=== PATIENT | female | born 1950 | race Caucasian/White ===

== ENCOUNTER 2018-03-09 10:53 | Day surgery (SDC) | payer OTHER ==
[2018-03-09] MEDS ORDERED: TRYPAN BLUE 0.5 ML SYR OPTH ONE (11:10)
[2018-03-09] MEDS: PHENYLEPHRINE 10% OPTH 5ML ONE ×3 (12:25→12:45)
[2018-03-09] MEDS ORDERED: BUPIVACAINE 0.25% PF 10 ML VIAL ONE (12:25)
[2018-03-09] MEDS: CYCLOPENTOLATE 1% OPTH 2 ML ONE ×3 (12:25→12:45)
[2018-03-09] MEDS ORDERED: NA CHLORIDE 0.9% 500 ML ONE (12:25)
[2018-03-09] MEDS ORDERED: LIDOCAINE 2% MPF 5 ML VIAL ONE ×2 (12:25→13:18)
[2018-03-09] MEDS: BALANCED SALT IRRIG PLAIN 500 ML BTL IRR ONE ×2 (13:05→14:03)
[2018-03-09] MEDS: EPINEPHRINE/PF 1 MG/ML AMP ONE ×2 (13:07→14:03)
[2018-03-09] MEDS: MOXIFLOXACIN HCL 10 DROPS/ML **OR USE OPTH ONE ×2 (13:08→14:03)
[2018-03-09] MEDS: DUOVISC 1 KIT OPTH ONE ×2 (13:08→14:03)
[2018-03-09] MEDS: TETRACAINE HCL 0.5% 2ML OPTH ONE ×4 (13:10→13:46)
[2018-03-09] MEDS ORDERED: PROPOFOL 200 MG/20 ML VIAL IV ONE (13:18)
--- NOTE | 2018-03-09 14:30 | P.BOP ---
Preoperative diagnosis: Nuclear sclerotic, anterior and posterior subcapsular cataract OD Postoperative diagnosis: Same Primary procedure: Phacoemulsification with IOL OD Estimated blood loss: None Anesthesia: Local (Subtenon's infusion with anesthesia for cataract surgery) Complications: None Implants: ZCB00 +22.5 Transferred to: Other (Day surgery) Condition: Good
--- NOTE | 2018-03-10 01:26 | OP ---
Date of Procedure: 03/09/2018 Surgeon: Maty Motta MD Anesthesiologist: No Grace CRNA and Victor Manuel Tillman MD. Preoperative Diagnosis: Nuclear sclerotic and anterior and posterior subcapsular cataract, right eye . Operation Performed: Phacoemulsification with intraocular lens implant, right eye. Anesthesia: Per cataract surgery. Complications: None. Description Of Procedure: In day surgery, the patient was prepped with Betadine and draped. A conju nctival incision was made in the inferior nasal quadrant with Addy scissors. A sub-Tenon block c onsisting of a 1:1 mixture of 2% Xylocaine and 0.25% bupivacaine was placed through the conjunctival incision with a blunt cannula. A Honan balloon was placed over the eye and the patient was transferr ed to the operating room. In the operating room the patient was prepped and draped in the usual sterile fashion for ophthalmic surgery. A lid speculum was placed in the right eye. Two paracentesis sites were made superiorly an d inferiorly in the limbal cornea. Viscoat was placed in the anterior chamber and a crescent blade w as used to make a corneal groove and tunnel, and a keratome was used to enter the anterior chamber. Provisc was placed in the anterior chamber and a 360 degree capsulotomy was performed with a cystitom e. The lens was hydrodissected with BSS and rotated freely. The lens was removed with a stop and ch op technique. 13.70 phaco CDE was used to remove the lens. Residual cortex was removed with the irr igation and aspiration. Provisc was placed in the capsular bag. A ZCB00 +22.5 lens was placed in th e capsular bag without complications. Irrigation and aspiration were used to remove residual viscoel astic. The paracentesis sites were hydrated with BSS. The wound and paracentesis sites were inspect ed and found to be watertight. Vigamox 0.07 cc was placed intracamerally at the end of the procedure . The eye was irrigated with balanced salt solution. The eye was patched with a soft cotton patch a nd Carmichael metal shield. The patient was returned to day surgery in good condition. Comments: Discharge Instructions: Ms. Quevedo was discharged to home in good condition and is to follow up camilla Motta in the morning. JHL/MODL Voice ID: [id number] Report ID: [id number]
== END 2018-03-09 15:11 | disposition home or self-care (01) ==
LOC: OR 10:53
PROVIDERS: ATTEND Ophthalmology Retina Specialist
PROC: 08RJ3JZ Replacement of Right Lens with Synthetic Substitute, Percutaneous Approach (ICD-10-PCS; principal; 2018-03-09 11:45)
DX: H25.11 Age-related nuclear cataract, right eye (principal); H25.031 Anterior subcapsular polar age-related cataract, right eye; H25.041 Posterior subcapsular polar age-related cataract, right eye; Z83.511 Family history of glaucoma; Z82.49 Family history of ischemic heart disease and other diseases of the circulatory system
CPT/HCPCS: J0171; J2704

== ENCOUNTER 2022-12-25 09:46 | Observation (INO) | payer BC ==
[2022-12-25] MEDS ORDERED: LIDOCAINE 1% MPF 5 ML VIAL ONE (10:12)
[2022-12-25] MEDS ORDERED: dexAMETHasone 10 MG/ML VIAL ONE (10:12)
[2022-12-25] MEDS ORDERED: FENTANYL CITR 100 MCG/2 ML ONE (10:12)
[2022-12-25] MEDS ORDERED: MIDAZOLAM HCL 2 MG/2 ML INJ ONE (10:12)
[2022-12-25] MEDS ORDERED: EPINEPHRINE/PF 1 MG/ML AMP ONE (10:12)
[2022-12-25] MEDS ORDERED: BUPIVACAINE 0.25% PF 30 ML VIAL ONE (10:13)
[2022-12-25] MEDS ORDERED: Ringers Lactate 1,000 ML IV ONE ×2 (10:15→14:01)
[2022-12-25] MEDS ORDERED: CEFAZOLIN SODIUM 2 GM/VIAL ONE (10:15)
[2022-12-25] MEDS ORDERED: CELECOXIB 100 MG CAPSULE ONE (10:29)
[2022-12-25] MEDS ORDERED: GABAPENTIN 100 MG CAP ONE (10:29)
[2022-12-25] MEDS ORDERED: Oxycodone HCl/Acetaminophen 5/325 MG TAB ONE (10:29)
[2022-12-25] MEDS ORDERED: ACETAMINOPHEN 500 MG TAB ONE (10:30)
[2022-12-25] MEDS ORDERED: TRANEXAMIC ACID 1,000 MG/10 ML VIAL IV ONE (11:31)
[2022-12-25] MEDS ORDERED: propofoL 200 MG/20 ML VIAL IV ONE (11:50)
[2022-12-25] MEDS ORDERED: KETAMINE HCL IN 0.9 % NACL 50 MG/5 ML SYRINGE IV ONE (11:50)
[2022-12-25] MEDS ORDERED: LIDOCAINE 2% MPF 5 ML VIAL ONE (11:50)
[2022-12-25] MEDS ORDERED: ONDANSETRON 4 MG/2 ML VIAL ONE (11:53)
[2022-12-25] MEDS ORDERED: MAGNESIUM SULFATE 1 gm IVPB 1 GM/100 ML BAG IV ONE (11:54)
[2022-12-25] MEDS ORDERED: DEXMEDETOMIDINE HCL 200 MCG/2 ML VIAL ONE (12:12)
[2022-12-25] MEDS ORDERED: EPHEDRINE SULF 50 MG/ML VIAL ONE (12:26)
[2022-12-25] MEDS ORDERED: DIPHENHYDRAMINE 25 MG TAB/CAP PO PRN (14:45)
--- NOTE | 2022-12-25 14:45 | P.BOP ---
Preoperative diagnosis: left knee osteoarthritis Postoperative diagnosis: same Primary procedure: Left total knee arthroplasty Electronic Systems Technician: NONE,NONE Estimated blood loss: 50 cc Specimen: Left knee bone remnants Findings: See dictation Anesthesia: General Complications: None Implants: Biomet Aron Persona 7 CR femur, F tibia with stem, 32 patella, 10 CR poly Fluids & blood products: per anesthesia record; TT: 87 mins @ 300 mmHg Transferred to: Recovery Room Condition: Good
[2022-12-25] MEDS ORDERED: ONDANSETRON 4 MG/2 ML VIAL IV PRN (14:48)
[2022-12-25] MEDS ORDERED: ACETAMINOPHEN 325 MG TABLET PO PRN (14:48)
[2022-12-25] MEDS ORDERED: DOCUSATE NA 100 MG CAP PO PRN (14:48)
[2022-12-25] MEDS ORDERED: TRAMADOL HCL 50 MG TAB PO PRN (14:52)
--- NOTE | 2022-12-25 15:26 | RAD REPORT ---
EXAM DESCRIPTION: RAD - Knee Left 2 View - 12/25/2022 3:18 pm CLINICAL HISTORY: Post Op COMPARISON: No comparisons FINDINGS: Left total knee arthroplasty has been performed. No unexpected immediate postoperative fin ding. Small of air is present in the joint. Skin franchesca are present. IMPRESSION: Postoperative left knee.
[2022-12-25 15:57] LABS: Hematocrit 39.3 % (36.0-45.0)
--- OUTSIDE RECORDS SUMMARY | 2022-12-25 16:16 | XMS REPORT | Continuity of Care Document ---
:1950 Author Organization [facility] t Address [address] [facility] [address] [place] [address] Care Team Providers Name Role Phone Steve Cox Attending Clinician Unavailable Problems This patient has no known problems. Allergies, Adverse Reactions, Alerts This patient has no known allergies or adverse reactions. Medications This patient has no known medications. Procedures This patient has no known procedures. Encounters Start End Encounter Admission Attending Care Care Encounter Source Date/Time Date/Time Type Type Clinicians Facility Department ID 2022-10-29 Outpatient Kenny [facility] [id number] Common 16:04:00 Steve [id number] [facility] 2022-10-14 Outpatient Kenny [facility] [id number] Common 10:49:00 Steve [id number] [facility] 2021-12-18 Outpatient Kenny [facility] [id number] Common 14:31:02 Steve [id number] [facility] Results This patient has no known results.
--- NOTE | 2022-12-25 16:43 | P.OP ---
Preoperative diagnosis: left knee osteoarthritis Postoperative diagnosis: same Primary procedure: Left total knee arthroplasty Anesthesia: general Estimated blood loss: 50 cc Specimen: left knee bone remnants Findings: See dictation Operative Technique: Indication For Procedure: Genna is an 72 year-old female presenting to my clinic with signs, symptoms and x-ray findings consistent with a severe left knee osteoarthritis. I discussed with the patient at length risks and benefits associated with operative and nonoperative treatment. She had failed conservative treatment measures and had significant difficulties with ADLs secondary to her pain. We discussed operative treatment and elected to proceed with left total knee arthroplasty. She expressed understanding and elected to proceed with operative treatment. Description Of Procedure: After informed consent was obtained, the patient was identified in the preoperative holding area. The left lower extremity was marked. The patient was then taken to the PACU where he underwent a left lower extremity adductor canal block performed by Anesthesia. She was then taken to the operating room, transferred to the operating table in supine fashion, and placed under general anesthesia. Her left lower extremity was then prepped and draped in usual sterile fashion. A time-out was initiated. The correct patient and procedure were confirmed and identified. The patient did receive her preoperative prophylactic antibiotics. The left lower extremity was then exsanguinated and tourniquet was inflated to 300 mmHg. Approximately 15 cm longitudinal incision was made centered over the anterior aspect of the left knee. Dissection was then taken to the extensor mechanism and a medial parapatellar arthrotomy was performed. The patella was everted and dislocated laterally and the knee was flexed in the fat pad. Osteophytes were debrided off the patella and a lateral release was performed. Medial and lateral meniscus and ACL were all excised exposing the distal femur. Excess hypertrophic synovium was also excised within the suprapatellar pouch. The patient had a CT scan of the left knee preoperatively for surgical planning and creation of cutting blocks. The cutting block was then placed over the distal femur and pins were then placed. The distal femoral cutting block was then placed over th e pins. Knee joint was then used to ensure proper depth cut and the distal femur was then cut. The chamfer cutting guide was then placed over the distal end of the femur. Anterior, posterior cuts as well as anterior and posterior chamfer cuts were then made again confirming proper depth of the cut using an Deepak wing. Excess bone remnants were then sent to pathology for further evaluation. Next, attention was taken to the proximal tibia. A tibial jig and tibial cutting block was then placed on proximal aspect of the left tibia and locked into position. Pins were then placed and alignment guide was then used to confirm proper alignment of the cut and then coronal and sagittal planes. The bone quality was somewhat diminished and a stem was prepared to aid with stabilization of the tibial implant. Once this was confirmed, the cutting jig was placed over the pins and the proximal tibia was cut. Sizing trays were then selected and size 10 mm spacer was used and there was good overall balance in flexion and extension. Next, the trial implants were then placed using the size 7 standard CR femur and a size F tibia with a 10 mm poly. There was overall good range of motion and good stability Trial implants were then removed. The wound was then irrigated thoroughly with normal saline and the knee was then injected with 20 cc of 0.5% Marcaine both in the posterior capsule and medial and lateral gutters as well as quadriceps tendon and periosteum. The tibia was then punched. The femur was drilled. The cement was then prepared on the back table. Cement was then placed first on the tibial surface followed by size F tibia with a stem. Excess cement was removed with Winder elevators. Size 7 standard CR femur was then placed on the distal femur after cement was placed on the distal femur. Excess cement was then removed and a size 10 mm trial poly was then placed. The knee was held in extension as the cement hardened. Undersurface of the patella was prepared debriding osteophytes using rongeurs as well as osteophytes had been debrided off the proximal tibia with rongeurs and osteotomes. Cement was placed on the undersurface of the patella after it was cut and a size 32 patella was placed. Once the cement was hardened, the knee was ranged, there was good overall stability both in flexion, extension and as well as stability with varus and valgus stresses. Trial poly was then removed and a size 10 mm CR poly was then placed and locked into position. The knee was then ranged again. There was good overall range of motion both for flexion and extension with good stability. The wound was then irrigated again thoroughly with normal saline using pulse lavage. Tourniquet was let down. Hemostasis was achieved using Bovie electrocautery. Extensor mechanism was then approximated using a #1 Vicryl bothin interrupted and running fashion. The fascia was then approximated using 0 Vicryl. Subcutaneous tissue was approximated with a 2-0 Vicryl. Skin was approximated using franchesca. Sterile dressings were applied. The patient was awakened and transferred back in stable condition Complications: None Implants: Biomet Aron Persona 7 CR femur, F tibia with stem, 32 patella, 10 CR poly Fluids & blood products: per anesthesia record; TT: 87 mins @ 300 mmHg Transferred to: Recovery Room Condition: Good
[2022-12-25] MEDS: CEFAZOLIN SODIUM 2 GM in NA CHLORIDE 0.9% 100 ML IVPB SCH (17:51)
[2022-12-25 18:30] VITALS: O2SAT 99; BMI 32.3
[2022-12-25] MEDS: HYDROCODONE/APAP 7.5/325 MG TAB PO PRN (18:53)
[2022-12-25] MEDS ORDERED: PNEUMOCOCCAL VACCINE 0.5 ML IMVAC ONE (20:00)
[2022-12-25] MEDS ORDERED: INFLUENZA VACCINE (for 6+ mo) 0.5 ML DOSE IMVAC ONE (20:00)
[2022-12-25] MEDS ORDERED: HOME MED 1 EA UNK (Rosuvastatin Calcium [Rosuvastatin Calcium] 40 MG Tablet) PO SCH (21:00)
[2022-12-25] MEDS ORDERED: ROSUVASTATIN 10 MG TAB PO SCH (21:00)
[2022-12-26] MEDS: CEFAZOLIN SODIUM 2 GM in NA CHLORIDE 0.9% 100 ML IVPB SCH ×2 (01:04→09:43)
[2022-12-26] MEDS: HYDROCODONE/APAP 7.5/325 MG TAB PO PRN ×2 (01:44→10:23)
[2022-12-26] MEDS: ENOXAPARIN 30 MG/0.3 ML SQ SCH ×3 (05:38→09:45)
[2022-12-26 07:01] LABS: Hematocrit 36.6 % (36.0-45.0)
[2022-12-26] MEDS ORDERED: HOME MED 1 EA UNK (Cholecalciferol (Vitamin D3) [Vitamin D3] 1,000 UNIT Capsule) PO SCH (09:00)
[2022-12-26] MEDS ORDERED: CELECOXIB 100 MG CAPSULE PO SCH (09:00)
[2022-12-26] MEDS ORDERED: VITAMIN D 1000 UNIT TAB PO SCH (09:00)
[2022-12-26 12:18] VITALS: BP 142/61; TEMP 96.9
--- NOTE | 2022-12-26 12:19 | P.DS ---
Admission Date: 12/25/22 Discharge Date: 12/26/22 Disposition: ROUTINE DISCHARGE Discharge Condition: GOOD Reason for Admission: s/p left TKA Consultations: none Procedures: Left total knee arthroplasty on December 25, 2022 Brief History of Present Illness: Genna is a 72-year-old female who underwent left total knee arthroplasty on December 25, 2022 without complication. She was admitted to floor in stable condition. Hospital Course: Genna is a 72-year-old female who underwent left total knee arthroplasty on December 25, 2022 without complication. She was admitted to floor in stable condition. Physical therapy was consulted to aid with mobilization. She was discharged on December 26, 2022 in stable condition. Her vital signs were stable while in the hospital. She mobilize safely with physical therapy. She will follow-up in 2 weeks for wound check and staple removal. Vital Signs/Physical Exam: Temp Pulse Resp BP Pulse Ox 96.3 F L 87 18 150/62 H 98 12/26/22 08:00 12/26/22 08:00 12/26/22 10:23 12/26/22 08:00 12/26/22 10:23 Laboratory Data at Discharge: Hgb 12.0 g/dL (12.0-15.0) D 12/26/22 06:30 Hct 36.6 % (36.0-45.0) 12/26/22 06:30 Home Medications: Acetaminophen 500 mg PO BID 12/19/22 Cholecalciferol (Vitamin D3) [Vitamin D3] 1,000 unit PO DAILY 12/19/22 Diphenhydramine [Benadryl*] 25 mg PO BEDTIME PRN PRN 12/19/22 Mitochondrial Synergy Suppleme 1 tab PO DAILY 12/19/22 Multivitamin 1 each PO DAILY 12/19/22 Multivitamin with Minerals [Hair, Skin and Nails] 1 each PO DAILY 12/19/22 Rosuvastatin Calcium 40 mg PO BEDTIME 12/19/22 Hydrocodone 7.5/APAP 325 [[place] 7.5/325 mg*] 1 tab PO Q4H PRN tab 12/26/22 Physician Discharge Instructions: Keep dressing clean, dry and intact. Begin Xarelto tomorrow, Friday, December 27, 2022 and take once daily. Use bilateral thigh-high CAYETANO hose for 2 weeks to aid with swelling. Follow-up with Dr. Flores in 2 weeks for reevaluation and staple removal. Diet: Regular Activity: Weight bearing as tolerated Followup: Jesi Cox [Primary Care Provider] - Meño Flores MD [ACTIVE - CAN ADMIT] - 1-2 Weeks
[2022-12-26] MEDS ORDERED: INFLUENZA VACCINE (for 6+ mo) 0.5 ML DOSE IMVAC ONE (13:18)
[2022-12-26] MEDS ORDERED: PNEUMOCOCCAL VACCINE 0.5 ML IMVAC ONE (13:18)
== END 2022-12-26 13:58 | disposition home or self-care (01) ==
LOC: OR 09:46 → 2ND 14:48
PROVIDERS: ADMIT Orthopaedic Surgery Sports Medicine; ATTEND Orthopaedic Surgery Sports Medicine
PROC: 0SRD069 Replacement of Left Knee Joint with Oxidized Zirconium on Polyethylene Synthetic Substitute, Cemented, Open Approach (ICD-10-PCS; principal; 2022-12-25 12:00)
DX: M17.12 Unilateral primary osteoarthritis, left knee (principal)
CPT/HCPCS: 36415 ×2; 88304; 88311; 85018 ×2; 85014 ×2; 73560; 90471; 90732; 97116; 97139; 97161; 97530; 94010; 27447; Q2035; J3475; J2704; J0171; J2001 ×2; J1650; J2250; J3010; J1100; J2405; J7120 ×2; G0378; G0379

== ENCOUNTER 2023-04-16 06:06 | Observation (INO) | payer BC ==
[2023-04-10 09:58] LABS: Absolute Lymphocytes (CBC) 1.8 K/uL (0.7-4.9); Hematocrit 42.5 % (36.0-45.0); MCV 89.7 fL (80-100); MPV 6.6 fL (7.6-11.3); Platelets 298 thou/uL (152-406); RBC Red Blood Cell Count 4.74 M/uL (3.86-4.86)
[2023-04-10 10:05] LABS: Protime INR 0.94
[2023-04-10 10:23] LABS: Potassium 3.8 mEq/L (3.5-5.1)
[2023-04-16] MEDS: Ringers Lactate 1,000 ML IV ONE (06:25)
[2023-04-16] MEDS: CELECOXIB 100 MG CAPSULE ONE (06:55)
[2023-04-16] MEDS: GABAPENTIN 100 MG CAP ONE (06:55)
[2023-04-16] MEDS: ACETAMINOPHEN 500 MG TAB ONE (06:55)
[2023-04-16] MEDS: Oxycodone HCl/Acetaminophen 5/325 MG TAB ONE (06:55)
[2023-04-16] MEDS: EPINEPHRINE 1 MG/ML VIAL ONE (06:59)
[2023-04-16] MEDS: dexAMETHasone 4 MG/ML VIAL ONE (06:59)
[2023-04-16] MEDS: DEXMEDETOMIDINE HCL 200 MCG/2 ML VIAL ONE (07:00)
[2023-04-16] MEDS: BUPIVACAINE 0.25% PF 30 ML VIAL ONE (07:01)
[2023-04-16] MEDS: MAGNESIUM SULFATE 1 gm IVPB 1 GM/100 ML BAG IV ONE (07:01)
[2023-04-16] MEDS: MIDAZOLAM HCL 2 MG/2 ML INJ ONE (07:13)
[2023-04-16] MEDS: FENTANYL CITR 100 MCG/2 ML ONE (07:13)
[2023-04-16] MEDS ORDERED: LIDOCAINE 2% MPF 5 ML VIAL ONE (07:50)
[2023-04-16] MEDS ORDERED: propofoL 200 MG/20 ML VIAL IV ONE (07:50)
[2023-04-16] MEDS ORDERED: KETAMINE HCL IN 0.9 % NACL 50 MG/5 ML SYRINGE IV ONE (07:54)
[2023-04-16] MEDS ORDERED: EPHEDRINE SULF 50 MG/ML VIAL ONE (08:11)
[2023-04-16] MEDS: CEFAZOLIN SODIUM 2 GM/VIAL ONE (08:15)
[2023-04-16] MEDS ORDERED: ONDANSETRON 4 MG/2 ML VIAL ONE (08:21)
[2023-04-16] MEDS: TRANEXAMIC ACID 1,000 MG/10 ML VIAL IV ONE (08:22)
[2023-04-16] MEDS ORDERED: dexAMETHasone 10 MG/ML VIAL ONE (10:23)
--- NOTE | 2023-04-16 10:51 | P.BOP ---
Preoperative diagnosis: right knee osteoarthritis Postoperative diagnosis: same Primary procedure: right total knee arthroplasty Sales Specialist: NONE,NONE Estimated blood loss: 40 cc Specimen: right knee bone remnants Anesthesia: General Complications: None Implants: Biomet Aron Persona, 9 CR femur, F tibia w/ stem, 10 MC poly, 35 patella Fluids & blood products: per anesthesia record; TT: 91 mins @ 300 mmHg Transferred to: Recovery Room Condition: Good
[2023-04-16] MEDS ORDERED: ONDANSETRON 4 MG/2 ML VIAL IV PRN (10:52)
[2023-04-16] MEDS ORDERED: ACETAMINOPHEN 325 MG TABLET PO PRN (10:52)
[2023-04-16] MEDS ORDERED: DOCUSATE NA 100 MG CAP PO PRN (10:52)
[2023-04-16] MEDS ORDERED: TRAMADOL HCL 50 MG TAB PO PRN (10:55)
--- OUTSIDE RECORDS SUMMARY | 2023-04-16 11:21 | XMS REPORT | Continuity of Care Document ---
Author Name Unknown Address [address] [facility] [address] [place] [address] [facility] [address] [facility] [address] [place] [address] Care Team Providers Care Steam Table Worker Name Role Phone Steve Cox Attending Clinician Unavailable Encounters Start Date/Time End Date/Time Encounter Type Admission Type Attending Clinicians Care Facility Care Department Encounter ID Source 2022-10-29 16:04:00 Outpatient Steve Cox [facility] [id number] [facility] 2022-10-14 10:49:00 Outpatient Steve Cox [facility] [id number] [facility] 2021-12-18 14:31:02 Outpatient Steve Cox [facility] [id number] [facility]
--- NOTE | 2023-04-16 11:25 | RAD REPORT ---
EXAM DESCRIPTION: RAD - Knee Right 2 View - 04/16/2023 11:19 am CLINICAL HISTORY: Post Op COMPARISON: No comparisons FINDINGS/IMPRESSION: Status post right knee arthroplasty. No hardware complications or acute fractur es. Surgical franchesca along the ventral aspect of the knee.
[2023-04-16] MEDS: HYDROMORPHONE HCL 1 MG/ML INJ ONE (11:26)
[2023-04-16 11:27] LABS: Hematocrit 38.9 % (36.0-45.0)
[2023-04-16 12:41] VITALS: BMI 30.6
[2023-04-16] MEDS: CEFAZOLIN SODIUM 2 GM in NA CHLORIDE 0.9% 100 ML IVPB SCH (16:02)
[2023-04-16] MEDS: ROSUVASTATIN 10 MG TAB PO SCH (20:20)
[2023-04-16] MEDS: DIPHENHYDRAMINE 25 MG TAB/CAP PO PRN (20:22)
[2023-04-16] MEDS: HYDROCODONE/APAP 7.5/325 MG TAB PO PRN (23:43)
[2023-04-17] MEDS: ENOXAPARIN 30 MG/0.3 ML SQ SCH (05:42)
[2023-04-17 05:57] LABS: Hematocrit 35.7 % (36.0-45.0)
[2023-04-17] MEDS: VITAMIN D 1000 UNIT TAB PO SCH (08:27)
[2023-04-17] MEDS: CELECOXIB 100 MG CAPSULE PO SCH (08:27)
[2023-04-17 08:39] VITALS: BP 126/58; TEMP 98.9
[2023-04-17 09:44] VITALS: O2SAT 96
--- NOTE | 2023-04-17 11:54 | P.DS ---
Admission Date: 04/16/23 Discharge Date: 04/17/23 Disposition: ROUTINE DISCHARGE Discharge Condition: GOOD Reason for Admission: s/p R TKA Consultations: none Procedures: R TKA 04/16/2023 Brief History of Present Illness: Genna is a 72-year-old female with admitted to the hospital postoperatively after right total knee arthroplasty on 04/16/2023. Hospital Course: Patient was admitted to the floor postoperatively in stable condition. Physical therapy was consulted to aid with mobilization. Patient mobilize safely with physical therapy. She was discharged on April 17, 2023 in stable condition. She was discharged with pain medication as well as Xarelto for DVT prophylaxis. Vital Signs/Physical Exam: Temp Pulse Resp BP Pulse Ox 98.9 F 79 16 126/58 L 96 04/17/23 08:00 04/17/23 08:00 04/17/23 08:00 04/17/23 08:00 04/17/23 08:00 Laboratory Data at Discharge: WBC 9.80 thou/uL (4.3-10.9) 04/10/23 09:45 Hgb 11.8 g/dL (12.0-15.0) L D 04/17/23 05:05 Hct 35.7 % (36.0-45.0) L 04/17/23 05:05 Plt Count 298 thou/uL (152-406) 04/10/23 09:45 PT 10.4 SECONDS (9.5-12.5) 04/10/23 09:45 INR 0.94 04/10/23 09:45 APTT 30.9 SECONDS (24.3-36.9) 04/10/23 09:45 Sodium 137 mEq/L (136-145) 04/10/23 09:45 Potassium 3.8 mEq/L (3.5-5.1) 04/10/23 09:45 BUN 10 mg/dL (7-18) 04/10/23 09:45 Creatinine 0.70 mg/dL (0.55-1.02) 04/10/23 09:45 Glucose 88 mg/dL (74-106) 04/10/23 09:45 Home Medications: Acetaminophen 500 mg PO BID 12/19/22 Cholecalciferol (Vitamin D3) [Vitamin D3] 1,000 unit PO DAILY 12/19/22 Diphenhydramine [Benadryl*] 25 mg PO BEDTIME PRN PRN 12/19/22 Mitochondrial Synergy Suppleme 1 tab PO DAILY 12/19/22 Multivitamin with Minerals [Hair, Skin and Nails] 1 each PO DAILY 12/19/22 Rosuvastatin Calcium 40 mg PO BEDTIME 12/19/22 Hydrocodone 7.5/APAP 325 [[place] 7.5/325 mg*] 1 tab PO Q4H PRN tab 04/17/23 Physician Discharge Instructions: Keep dressing clean, dry, and intact. Begin Xarelto tomorrow morning, 04/18/2023, with breakfast and take once daily until prescription completed. Use bilateral thigh high CAYETANO hose for 2 weeks. F/u with Dr. Flores in 2 weeks for staple removal. Diet: Regular Activity: Weight bearing as tolerated Followup: Jsei Cox [Primary Care Provider] - Meño Flores MD [ACTIVE - CAN ADMIT] -
== END 2023-04-17 12:08 | disposition home or self-care (01) ==
LOC: OR 06:06 → 4TH 10:52
PROVIDERS: ADMIT Orthopaedic Surgery Sports Medicine; ATTEND Orthopaedic Surgery Sports Medicine
PROC: 0SRC069 Replacement of Right Knee Joint with Oxidized Zirconium on Polyethylene Synthetic Substitute, Cemented, Open Approach (ICD-10-PCS; principal; 2023-04-16 08:00)
DX: M17.11 Unilateral primary osteoarthritis, right knee (principal)
CPT/HCPCS: 31720; 36415; 80048; 85014; 85018; 85025; 85610; 85730; 88304; 88305; 88311; 94010; 97110; 97116; 97139; 97161; 97530; C1776; G0378; G0379; J0171; J1100; J1170; J1650; J2001; J2250; J2405; J2704; J3010; J3475; J7120